=== PATIENT | female | born 1950 | race Caucasian/White ===

== ENCOUNTER → 2017-07-03 | Outpatient (CLI) | payer BC ==
[~2017-07-03] MED LIST: CHOL100027 PO; CINNAMIN PO; CLTP PO; Flax Seed Oil PO; GLCSC750600 PO; L-LYSINE PO; MULT-506 PO; ONDA4TAB7 SL
== END | disposition home or self-care (01) ==
LOC: C.PAPS 16:02
PROVIDERS: ATTEND Obstetrics & Gynecology
DX: Z01.419 Encounter for gynecological examination (general) (routine) without abnormal findings (principal)

== ENCOUNTER → 2017-10-08 | Outpatient (CLI) | payer OTHER ==
[2017-10-08 12:34] LABS: BLOOD UREA NITROGEN 12 mg/dl (7-18); CALCIUM 9.5 mg/dl (8.5-10.1); CARBON DIOXIDE 30 mmol/L (21-32); CREATININE 0.88 mg/dl (0.60-1.20); GLUCOSE 105 mg/dl (70-99); POTASSIUM 4.4 mmol/L (3.5-5.1); SODIUM 140 mmol/L (136-145)
[2017-10-08 12:37] LABS: HEMATOCRIT 43.3 % (37-47); HEMOGLOBIN 14.9 g/dL (12.0-16.0); MEAN CELL VOLUME 91.5 fL (80-100); MEAN CORPUSCULAR HEMOGLOBIN 31.5 pg (25-34); MEAN CORPUSCULAR HGB CONC 34.4 g/dl (32-36); MEAN PLATELET VOLUME 10.7 fL (7.4-10.4); PLATELET COUNT 196 K/uL (130-400); RED CELL DISTRIBUTION WIDTH CV 13.2 % (11.5-14.5); RED CELL DISTRIBUTION WIDTH SD 43.8 fL (36.4-46.3); WHITE BLOOD COUNT 5.65 K/uL (4.8-10.8)
== END | disposition home or self-care (01) ==
LOC: C.LABBFT 09:29
PROVIDERS: ATTEND Physician Assistant Medical
DX: I10 Essential (primary) hypertension (principal); R04.0 Epistaxis

== ENCOUNTER 2020-10-24 10:06 | Inpatient (IN) ==
[2020-10-24] MEDS ORDERED: SODIUM CHLORIDE 0.9% 1000ML 1,000 ML IV ONE (10:41)
--- NOTE | 2020-10-24 10:51 | Emergency Department Note ---
History of Present Illness General Chief complaint: Illness Stated complaint: EXPOSURE TO COVID 19 - FEELING ILL Time Seen by Provider: 10/24/20 10:18 Source: patient Mode of arrival: ambulatory Limitations: no limitations History of Present Illness Provider complaint: fatigue, cough, COVID exposure Onset (ago): week(s) 3 Associated symptoms: + cough, + loss of appetite, + malaise, + nausea/vomiting and + weakness; no chest pain, no fever/chills and no shortness of breath This is a 70-year-old female presents the emergency department with concern for possible Covid exposure 3 weeks ago. Patient complains of multiple symptoms stating that she first began noticing some fatigue. She then also noticed mildly productive cough, intermittent diarrhea, body aches. She denies fevers chills, or chest pain. Patient denies any sense of being short of breath. Patient denies any history of tobacco abuse or asthma. No recent change in medications. She states 3 weeks ago she was exposed to someone who at the time did not know they had Covid. They were diagnosed 4 days later which is about when she started to not feel well. Patient states she assumed she had Covid so she was quarantining at home. She states some days she feels better some days she feels worse but overall she is not getting better. She states she has had a poor appetite and is concerned about dehydration. She states she is also concerned about low potassium as given her poor intake recently she is aware that one of her blood pressure medications could also affect her potassium. Patient has no history of pneumonia. Patient did not receive a flu vaccine this year. Pt seen during a time of high acuity and national emergency pandemic while wearing PPE. Home Medications Medication Instructions Recorded Confirmed Type calcium carbonate 600 mg calcium 600 - 1,200 mg PO DAILY tab 04/16/19 10/24/20 History (1,500 mg) tablet cholecalciferol (vitamin D3) 125 5,000 units PO DAILY tab 04/16/19 10/24/20 History mcg (5,000 unit) tablet cinnamon bark 500 mg capsule 0 mg PO DAILY cap 04/16/19 10/24/20 History coenzyme Q10 100 mg capsule 100 mg PO DAILY cap 04/16/19 10/24/20 History multivitamin 1 tab PO DAILY 04/16/19 10/24/20 History red yeast rice 600 mg capsule 600 mg PO DAILY cap 04/16/19 10/24/20 History irbesartan 75 mg tablet 75 mg PO DAILY #90 tab 04/28/20 10/24/20 Rx glucos sul [id number] 2 cap PO DAILY 10/24/20 10/24/20 History [Glucosamine Chondroitin] Allergies Allergy/AdvReac Type Severity Reaction Status Date / Time ciprofloxacin Allergy Unknown Verified 10/24/20 15:17 codeine Allergy Unknown . Verified 10/24/20 15:17 morphine Allergy Unknown . Verified 10/24/20 15:17 Past Med/Surg History Medical History (Updated 10/26/20 @ 13:17 by Suzie Cai DO) History of tremor Hypercholesteremia Hypertension Surgical History History of appendectomy History of laparoscopic cholecystectomy History of tonsillectomy and adenoidectomy History of vaginal hysterectomy Family History Mother Thyroid cancer Social History Smoking Status: Never smoker Second Hand Exposure: No; Hx Alcohol Use: No Hx Substance Use: No Preferred Language: Kyrgyz Communication Ability: Effective Visual Impairment: No Limitations Hearing Ability: Normal Hospital Personnel Director Required: No Beliefs That Will Affect Care: None marital status: / Current Living Situation: Alone 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 and A total of 10 systems reviewed and were otherwise negative Physical Exam Vital Signs Vital Signs - 24 hr 10/24/20 10:10 10/24/20 10:27 10/24/20 10:30 Temperature 36.8 C 37.7 C H Temperature Source Temporal Artery Scan Oral Pulse Rate 95 H 91 H Pulse Rate [Right Finger] 90 Pulse Rate from SpO2 Sensor 92 H Respiratory Rate 22 16 19 Respiratory Effort / Characteristics Non-Labored Spontaneous Respiratory Depth Normal Respiratory Pattern Regular Blood Pressure 160/98 H 170/95 H Blood Pressure [Right Arm] 170/95 H Blood Pressure Mean 118 120 Blood Pressure Mean [Right Arm] 120 Blood Pressure Position Sitting Blood Pressure Position [Right Arm] Sitting Pulse Oximetry 90 91 90 Oxygen Delivery Method Room Air Room Air Room Air Oxygen Flow Rate Sepsis Recent Fever Within 48 Hours No Sepsis New/Unexplained Change in Mental Status N/A Sepsis Action Taken by Nursing No Action Required 10/24/20 11:30 Temperature Temperature Source Pulse Rate 88 Pulse Rate [Right Finger] Pulse Rate from SpO2 Sensor 88 Respiratory Rate 18 Respiratory Effort / Characteristics Respiratory Depth Respiratory Pattern Blood Pressure Blood Pressure [Right Arm] Blood Pressure Mean Blood Pressure Mean [Right Arm] Blood Pressure Position Blood Pressure Position [Right Arm] Pulse Oximetry 95 Oxygen Delivery Method Nasal Cannula Oxygen Flow Rate 2 Sepsis Recent Fever Within 48 Hours Sepsis New/Unexplained Change in Mental Status Sepsis Action Taken by Nursing GENERAL: alert, well appearing, well nourished, no distress, non-toxic EYE EXAM: normal conjunctiva, PERRL and EOM's grossly intact OROPHARYNX: no exudate, no erythema, lips, buccal mucosa, and tongue normal and mucous membranes are moist NECK: supple, no nuchal rigidity, no adenopathy, non-tender LUNGS: Clear to auscultation. Normal chest wall mechanics, no w/r/r HEART: no murmurs, S1 normal and S2 normal ABDOMEN: abdomen soft, non-tender, normo-active bowel sounds, no masses, no rebound or guarding. BACK: Back is symmetrical on inspection and there is no deformity, no midline tenderness, no CVA tenderness. SKIN: no rashes and no bruising UPPER EXTREMITIES: upper extremities are grossly normal. FROM, nml pulses b/l. LOWER EXTREMITIES: No pitting edema. FROM, nml pulses b/l. NEURO EXAM: Normal sensorium, cranial nerves II-XII grossly intact, normal speech, no gross weakness of arms, no gross weakness of legs. Gross sensation intact. Course Administered Medications Dexamethasone (Dexamethasone 4 Mg Tab) 6 mg PO DAILY GUEVARA Stop: 11/02/20 09:55 Last Admin: 10/26/20 07:54 Dose: 6 mg Documented by: [id number] Irbesartan (Irbesartan 75 Mg Tab) 75 mg PO DAILY@0800 GUEVARA Stop: 11/24/20 07:59 Last Admin: 10/26/20 07:53 Dose: 75 mg Documented by: [id number] Admin: 10/25/20 08:27 Dose: 75 mg Documented by: [id number] Vitamin D (Cholecalciferol 1,000 Units 25 Mcg Tab) 5,000 units PO DAILY@0800 GUEVARA Stop: 11/24/20 07:59 Last Admin: 10/26/20 07:53 Dose: 5,000 units Documented by: [id number] Admin: 10/25/20 08:27 Dose: 5,000 units Documented by: [id number] Discontinued Medications Dexamethasone (Dexamethasone Sod Inj 10 Mg/Ml Vial) 6 mg IV NOW ONE Stop: 10/24/20 13:29 Last Admin: 10/24/20 14:50 Dose: 6 mg Documented by: [id number] Sodium Chloride (Nss 1000ml) 1,000 mls @ 999 mls/hr IV .Q1H1M ONE Stop: 10/24/20 11:41 Last Infusion: 10/24/20 13:33 Dose: 0 mls/hr Documented by: [id number] Admin: 10/24/20 11:15 Dose: 999 mls/hr Documented by: [id number] Acetaminophen (Ofirmev) 1,000 mg in 100 mls @ 400 mls/hr IV NOW STA Stop: 10/24/20 11:12 Last Infusion: 10/24/20 12:34 Dose: 0 mls/hr Documented by: [id number] Admin: 10/24/20 12:13 Dose: 400 mls/hr Documented by: [id number] Ceftriaxone Sodium (Rocephin) 2,000 mg in 70 mls @ 140 mls/hr IV NOW STA Stop: 10/24/20 13:39 Last Infusion: 10/24/20 14:44 Dose: 0 mls/hr Documented by: [id number] Admin: 10/24/20 13:33 Dose: 140 mls/hr Documented by: [id number] Sodium Chloride (Nss 1000ml) 1,000 mls @ 200 mls/hr IV .Q5H GUEVARA Stop: 11/23/20 13:14 Last Admin: 10/24/20 20:02 Dose: Not Given Documented by: [id number] Infusion: 10/24/20 18:50 Dose: 0 mls/hr Documented by: [id number] Admin: 10/24/20 13:33 Dose: 200 mls/hr Documented by: [id number] Dexamethasone Sodium Phosphate (6 mg/ Syringe) 1.5 mls @ 1 mls/min IV DAILY@0800 [facility] Stop: 11/24/20 07:59 Last Admin: 10/25/20 08:28 Dose: 1 mls/min Documented by: [id number] Medical Decision Making Differential Diagnosis Differential Diagnosis includes but is not limited to dehydration, stroke, anemia, hypoglycemia, hyponatremia, hypernatremia, urinary tract infection, pneumonia, bronchitis, sepsis, gastroenteritis, additional abdominal pathology, metabolic abnormalities and infections. Medical Records Attestation: I reviewed the patient's medical records. Home Medications Current Medication List: was personally reviewed by me Laboratory Data Attestation: I reviewed the patient's lab results. Result diagrams: 10/26/20 06:32 10/26/20 06:32 Lab Results 10/24/20 10/24/20 10/24/20 Range/Units 10:36 10:36 11:17 WBC 6.10 (4.8-10.8) K/uL RBC 4.68 (4.2-5.4) M/uL Hgb 15.0 (12.0-16.0) g/dL Hct 41.8 (37-47) % MCV 89.3 (80-100) fL MCH 32.1 (25-34) pg MCHC 35.9 (32-36) g/dL RDW Std Deviation 43.0 (36.4-46.3) fL RDW Coeff of Lauren 13.2 (11.5-14.5) % Plt Count 204 (130-400) K/uL MPV 10.8 H (7.4-10.4) fL Immature Gran % (Auto) 0.3 % Neut % (Auto) 75.1 % Lymph % (Auto) 14.1 % [place] % (Auto) 10.3 % Eos % (Auto) 0.0 % Baso % (Auto) 0.2 % Neut # (Auto) 4.58 (1.4-6.5) K/uL Lymph # (Auto) 0.86 L (1.2-3.4) K/uL [place] # (Auto) 0.63 H (0.11-0.59) K/uL Eos # (Auto) 0.00 (0-0.5) K/uL Baso # (Auto) 0.01 (0-0.2) K/uL Immature Gran # (Auto) 0.02 (0.00-0.02) K/uL Sodium 137 (136-145) mmol/L Potassium (3.5-5.1) mmol/L Chloride 102 (98-107) mmol/L Carbon Dioxide 27 (21-32) mmol/L Anion Gap 8.0 (3-11) BUN 8 (7-18) mg/dl Creatinine 0.80 (0.6-1.2) mg/dl Est Cr Clr Drug Dosing 70.9 ml/min Est GFR ( Amer) 86.6 Est GFR (Non-Af Amer) 74.7 BUN/Creatinine Ratio 9.8 L (10-20) Glucose 122 H (70-99) mg/dl Calcium 8.5 (8.5-10.1) mg/dl Magnesium (1.8-2.4) mg/dl Total Bilirubin 0.8 (0.2-1) mg/dl AST (15-37) U/L ALT 45 (12-78) U/L Alkaline Phosphatase 93 (45-117) U/L Troponin I < 0.015 (0-0.045) ng/ml NT-Pro-B Natriuret Pep 185 (0-900) pg/ml Total Protein 6.8 (6.4-8.2) gm/dl Albumin 2.7 L (3.4-5.0) gm/dl Globulin 4.1 H (2.5-4.0) gm/dl Albumin/Globulin Ratio 0.7 L (0.9-2) Lipase 119 (73-393) U/L Procalcitonin (0-0.5) ng/ml TSH 0.916 (0.300-4.500) uIu/ml Urine Color Urine Appearance (Clear) Urine pH (4.5-7.5) Ur Specific [place] (1.000-1.030) Urine Protein (Negative) Urine Glucose (UA) (Negative) Urine Ketones (Negative) Urine Blood (Negative) Urine Nitrite (Negative) Urine Bilirubin (Negative) Urine Urobilinogen (Negative) Ur Leukocyte Esterase (Negative) Urine WBC (Auto) (0-5) /hpf Urine RBC (Auto) (0-4) /hpf U Hyaline Cast (Auto) (0-5) /lpf U Epithel Cells (Auto) (0-5) /lpf Urine Bacteria (Auto) (Negative) COVID-19 Eval Order CovFluRsv at [facility] SARS-CoV-2 (PCR) (Negative) Influenza Type A (PCR) (Neg) Influenza Type B (PCR) (Neg) RSV (RT-PCR) (Neg) 10/24/20 10/24/20 10/24/20 Range/Units 11:17 12:04 12:04 WBC (4.8-10.8) K/uL RBC (4.2-5.4) M/uL Hgb (12.0-16.0) g/dL Hct (37-47) % MCV (80-100) fL MCH (25-34) pg MCHC (32-36) g/dL RDW Std Deviation (36.4-46.3) fL RDW Coeff of Lauren (11.5-14.5) % Plt Count (130-400) K/uL MPV (7.4-10.4) fL Immature Gran % (Auto) % Neut % (Auto) % Lymph % (Auto) % [place] % (Auto) % Eos % (Auto) % Baso % (Auto) % Neut # (Auto) (1.4-6.5) K/uL Lymph # (Auto) (1.2-3.4) K/uL [place] # (Auto) (0.11-0.59) K/uL Eos # (Auto) (0-0.5) K/uL Baso # (Auto) (0-0.2) K/uL Immature Gran # (Auto) (0.00-0.02) K/uL Sodium (136-145) mmol/L Potassium 3.6 (3.5-5.1) mmol/L Chloride (98-107) mmol/L Carbon Dioxide (21-32) mmol/L Anion Gap (3-11) BUN (7-18) mg/dl Creatinine (0.6-1.2) mg/dl Est Cr Clr Drug Dosing ml/min Est GFR ( Amer) Est GFR (Non-Af Amer) BUN/Creatinine Ratio (10-20) Glucose (70-99) mg/dl Calcium (8.5-10.1) mg/dl Magnesium 2.1 (1.8-2.4) mg/dl Total Bilirubin (0.2-1) mg/dl AST 34 (15-37) U/L ALT (12-78) U/L Alkaline Phosphatase (45-117) U/L Troponin I (0-0.045) ng/ml NT-Pro-B Natriuret Pep (0-900) pg/ml Total Protein (6.4-8.2) gm/dl Albumin (3.4-5.0) gm/dl Globulin (2.5-4.0) gm/dl Albumin/Globulin Ratio (0.9-2) Lipase (73-393) U/L Procalcitonin < 0.05 (0-0.5) ng/ml TSH (0.300-4.500) uIu/ml Urine Color Urine Appearance (Clear) Urine pH (4.5-7.5) Ur Specific [place] (1.000-1.030) Urine Protein (Negative) Urine Glucose (UA) (Negative) Urine Ketones (Negative) Urine Blood (Negative) Urine Nitrite (Negative) Urine Bilirubin (Negative) Urine Urobilinogen (Negative) Ur Leukocyte Esterase (Negative) Urine WBC (Auto) (0-5) /hpf Urine RBC (Auto) (0-4) /hpf U Hyaline Cast (Auto) (0-5) /lpf U Epithel Cells (Auto) (0-5) /lpf Urine Bacteria (Auto) (Negative) COVID-19 Eval Order SARS-CoV-2 (PCR) POSITIVE A* (Negative) Influenza Type A (PCR) Negative (Neg) Influenza Type B (PCR) Negative (Neg) RSV (RT-PCR) Negative (Neg) 10/24/20 Range/Units 12:20 WBC (4.8-10.8) K/uL RBC (4.2-5.4) M/uL Hgb (12.0-16.0) g/dL Hct (37-47) % MCV (80-100) fL MCH (25-34) pg MCHC (32-36) g/dL RDW Std Deviation (36.4-46.3) fL RDW Coeff of Lauren (11.5-14.5) % Plt Count (130-400) K/uL MPV (7.4-10.4) fL Immature Gran % (Auto) % Neut % (Auto) % Lymph % (Auto) % [place] % (Auto) % Eos % (Auto) % Baso % (Auto) % Neut # (Auto) (1.4-6.5) K/uL Lymph # (Auto) (1.2-3.4) K/uL [place] # (Auto) (0.11-0.59) K/uL Eos # (Auto) (0-0.5) K/uL Baso # (Auto) (0-0.2) K/uL Immature Gran # (Auto) (0.00-0.02) K/uL Sodium (136-145) mmol/L Potassium (3.5-5.1) mmol/L Chloride (98-107) mmol/L Carbon Dioxide (21-32) mmol/L Anion Gap (3-11) BUN (7-18) mg/dl Creatinine (0.6-1.2) mg/dl Est Cr Clr Drug Dosing ml/min Est GFR ( Amer) Est GFR (Non-Af Amer) BUN/Creatinine Ratio (10-20) Glucose (70-99) mg/dl Calcium (8.5-10.1) mg/dl Magnesium (1.8-2.4) mg/dl Total Bilirubin (0.2-1) mg/dl AST (15-37) U/L ALT (12-78) U/L Alkaline Phosphatase (45-117) U/L Troponin I (0-0.045) ng/ml NT-Pro-B Natriuret Pep (0-900) pg/ml Total Protein (6.4-8.2) gm/dl Albumin (3.4-5.0) gm/dl Globulin (2.5-4.0) gm/dl Albumin/Globulin Ratio (0.9-2) Lipase (73-393) U/L Procalcitonin (0-0.5) ng/ml TSH (0.300-4.500) uIu/ml Urine Color Yellow Urine Appearance Cloudy A (Clear) Urine pH 7.5 (4.5-7.5) Ur Specific [place] 1.014 (1.000-1.030) Urine Protein 1+ H (Negative) Urine Glucose (UA) Negative (Negative) Urine Ketones Negative (Negative) Urine Blood Trace H (Negative) Urine Nitrite Positive A (Negative) Urine Bilirubin Negative (Negative) Urine Urobilinogen Negative (Negative) Ur Leukocyte Esterase Negative (Negative) Urine WBC (Auto) 5-10 H (0-5) /hpf Urine RBC (Auto) 0-4 (0-4) /hpf U Hyaline Cast (Auto) 1-5 (0-5) /lpf U Epithel Cells (Auto) >30 H (0-5) /lpf Urine Bacteria (Auto) 4+ H (Negative) COVID-19 Eval Order SARS-CoV-2 (PCR) (Negative) Influenza Type A (PCR) (Neg) Influenza Type B (PCR) (Neg) RSV (RT-PCR) (Neg) Imaging Data Radiologist's Impression: SINGLE VIEW CHEST CLINICAL HISTORY: Cough. FINDINGS: An AP, portable, upright chest radiograph is obtained. No prior studies are available for comparison at the time of dictation. The heart appears mildly enlarged. Multifocal patchy airspace consolidation is seen throughout both lungs. No large pleural effusion or pneumothorax is seen. The skeletal structures are osteopenic. The bony thorax is grossly intact. IMPRESSION: Multifocal airspace consolidation is seen throughout both lungs, typical for multifocal pneumonia. Clinical correlation will be required and radiographic follow-up to resolution is recommended. ACT 112: Negative or not required by law. Electronically signed by: Marito Davey M.D. 10/24/2020 11:40 AM ECG Data Attestation: I personally reviewed and interpreted this ECG as follows: Indication: + weakness Rate (beats per minute): 86 Rhythm: + normal sinus ECG Intervals/blocks: + Normal QRS and + Normal QT ECG [place]: + Normal ECG ST segments: + Normal ST segments Blood Pressure Blood Pressure Findings: Elevated blood pressure Blood Pressure Disposition: further management by hospitalist [facility] Narrative This is a 70 yo female who presents due to concern for dehydration and possible recent exposure to COVID. Patient denies overt fevers or SOB. ADmitted to a cough and several other symptoms. VS stable. Patient was 90% on RA at rest. Labs sent and CXR performed. CXR with multifocal pneumonia. COVID was still pending at the time so no antibiotics started. UA resulted and suggestive of UTI despite suboptimal specimen. Pt given IV antibiotics. Patient hypoxia with any movement/exertion. Trying to go to the bathroom dropped into 80's. No pr ior pulmonary history. Discussed with patient all results, COVID did result positive which likely explaines pna and other symptoms. I discussed disposition. She verbalized understanding and was in agreement with the plan. An order was placed for continuous cardiac monitoring. The monitor shows a rate of _68_ with normal sinus_ rhythm. Impression & Plan Weakness, COVID-19, Hypoxia, Dehydration, Acute UTI (urinary tract infection) Discharge Plan Visit Data Chief Complaint: Illness Stated Complaint: EXPOSURE TO COVID 19 - FEELING ILL ED Provider: Suzie Cai Discharge Problem: Weakness, COVID-19, Hypoxia, Dehydration, Acute UTI (urinary tract infection) Patient Disposition: Admitted As Inpatient Discharge Instructions Interventions: ED Discharge Assessment Last Done: 10/24/20 18:45
[2020-10-24] MEDS ORDERED: ACETAMINOPHEN 1,000 MG/100 ML VIAL IV STA (10:58)
[2020-10-24 11:12] LABS: Basophils # (auto) 0.01 K/uL (0-0.2); Basophils % (auto) 0.2 %; Hematocrit (blood only) 41.8 % (37-47); Immature Granulocytes # (auto) 0.02 K/uL (0.00-0.02); Immature Granulocytes % (auto) 0.3 %; Lymphocytes # (auto) 0.86 K/uL (1.2-3.4); Lymphocytes % (auto) 14.1 %; Mean Corpuscular Hemoglobin 32.1 pg (25-34); Mean Corpuscular Hgb Conc 35.9 g/dL (32-36); Mean Corpuscular Volume 89.3 fL (80-100); Mean Platelet Volume 10.8 fL (7.4-10.4); Monocytes # (auto) 0.63 K/uL (0.11-0.59); Monocytes % (auto) 10.3 %; Neutrophils # (auto) 4.58 K/uL (1.4-6.5); Neutrophils % (auto) 75.1 %; Platelet Count 204 K/uL (130-400); RDW Coefficient of Variation 13.2 % (11.5-14.5); Red Blood Count 4.68 M/uL (4.2-5.4)
[2020-10-24 11:40] LABS: Alanine Aminotransferase 45 U/L (12-78); Albumin Level 2.7 gm/dl (3.4-5.0); BUN Creatinine Ratio 9.8 (10-20); Blood Urea Nitrogen 8 mg/dl (7-18); Calcium 8.5 mg/dl (8.5-10.1); Carbon Dioxide 27 mmol/L (21-32); Chloride 102 mmol/L (98-107); Creatinine Clr Calc Pharmacy 70.9 ml/min; Est GFR (African American) 86.6; Est GFR (Non-African American) 74.7; Glucose 122 mg/dl (70-99); Lipase 119 U/L (73-393); Sodium 137 mmol/L (136-145)
--- NOTE | 2020-10-24 11:41 | XRay Report ---
SINGLE VIEW CHEST CLINICAL HISTORY: Cough. FINDINGS: An AP, portable, upright chest radiograph is obtained. No prior studies are available for c omparison at the time of dictation. The heart appears mildly enlarged. Multifocal patchy airspace co nsolidation is seen throughout both lungs. No large pleural effusion or pneumothorax is seen. The ske letal structures are osteopenic. The bony thorax is grossly intact. IMPRESSION: Multifocal airspace consolidation is seen throughout both lungs, typical for multifocal p neumonia. Clinical correlation will be required and radiographic follow-up to resolution is recommend ed. ACT 112: Negative or not required by law. Electronically signed by: Marito Davey M.D. 10/24/2020 11:40 AM
[2020-10-24 11:49] LABS: Albumin Globulin Ratio 0.7 (0.9-2); Alkaline Phosphatase 93 U/L (45-117); Bilirubin,Total 0.8 mg/dl (0.2-1); Globulin 4.1 gm/dl (2.5-4.0); NT Pro B Type Natriuretic Pept 185 pg/ml (0-900); Thyroid Stimulating Hormone 0.916 uIu/ml (0.300-4.500); Total Protein 6.8 gm/dl (6.4-8.2); Troponin I < 0.015 ng/ml (0-0.045)
[2020-10-24 12:23] LABS: Potassium 3.6 mmol/L (3.5-5.1)
[2020-10-24 12:28] LABS: Magnesium 2.1 mg/dl (1.8-2.4)
[2020-10-24 12:38] LABS: Appearance Urine Cloudy (Clear); Bacteria Urine Automated 4+ (Negative); Bilirubin Urine Negative (Negative); Blood Urine Trace (Negative); Color Urine Yellow; Epithelial Cell Urine Auto >30 /lpf (0-5); Glucose Urine UA Negative (Negative); Ketones Urine Negative (Negative); Leukocyte Esterase Urine Negative (Negative); Nitrite Urine Positive (Negative); RBC Urine Automated 0-4 /hpf (0-4); Specific Gravity Urine 1.014 (1.000-1.030); Urobilinogen Urine Negative (Negative); pH Urine 7.5 (4.5-7.5)
[2020-10-24 12:40] LABS: Protein Urine 1+ (Negative)
--- NOTE | 2020-10-24 12:47 | Electrocardiogram Report ---
Test Reason : Blood Pressure : / mmHG Vent. Rate : 086 BPM Atrial Rate : 086 BPM P-R Int : 156 ms QRS Dur : 090 ms QT Int : 332 ms P-R-T Axes : 046 031 028 degrees QTc Int : 397 ms Normal sinus rhythm Normal ECG When compared with ECG of 24-JUN-2018 14:51, Nonspecific T wave abnormality now evident in Anterior leads Confirmed by Mike Birmingham [id number]) on 10/24/2020 12:46:51 PM Referred By: REFERRED SELF Confirmed By:Mike Birmingham
[2020-10-24 13:04] LABS: Influenza A virus by PCR Negative (Neg); Influenza B virus by PCR Negative (Neg); RSV by PCR Negative (Neg)
[2020-10-24] MEDS ORDERED: cefTRIAXone SODIUM 2,000 MG/70 ML BAG IV STA (13:10)
[2020-10-24 13:13] LABS: SARS CoV2 RNA(COVID-19) InHosp POSITIVE (Negative)
[2020-10-24] MEDS ORDERED: DEXAMETHASONE SOD INJ 10 MG/ML VIAL IV ONE (13:28)
[2020-10-24] MEDS: SODIUM CHLORIDE 0.9% 1000ML 1,000 ML IV SCH ×2 (13:33→20:02)
--- NOTE | 2020-10-24 14:15 | History & Physical Report ---
Date of Service October 24, 2020 Assessment & Plan (1) Pneumonia due to COVID-19 virus: With bilateral multifocal pneumonia in the setting of Covid-19 illness She is around day 16 of her illness and is outside the window for remdesivir convalescent plasma She has some hypoxia with pulse ox 80% with ambulation but 90% at rest on room air. -Admit to medical floor with telemetry, Covid precautions -Start dexamethasone 6 mg IV once daily x10-day course -Received 1 L of fluids in the ER, no further fluids needed at this time as she is able to tolerate p.o. -Antipyretics and antiemetics as needed -Discussed prone positioning as tolerated -Continue supplemental O2 as below to keep pulse ox greater than 90% -Blood cultures pending (2) Acute respiratory failure with hypoxia: Secondary to Covid-19 pneumonia Pulse ox 80% on room air with ambulation but 90% at rest -Supplemental O2 as needed to keep pulse ox greater than 90% -Prone positioning, dexamethasone -Albuterol as needed (3) Hypertension: Blood pressures elevated here in the ER, could be secondary to anxiety -Follow blood pressures IV hydralazine as needed SBP greater than 180 Continue home irbesartan (4) Hypercholesteremia: Hold home co-Q10 and red yeast rice (5) Abnormal finding on urinalysis: UA abnormal but seems contaminated with greater than 30 epithelials and only 5-10 WBCs She has absolutely no urinary symptoms at all Received 1 dose of ceftriaxone in the ER-we will not continue antibiotics Urine cultures are drawn (6) DVT prophylaxis: Patient reports that she cannot take any blood thinners due to extremely easy bruising and a remote history of some sort of abnormal coagulopathy work-up 40 years ago She is unwilling to try heparin or Lovenox SQ despite counseling on high risk with Covid-19 illness SCDs only, ambulation Disposition-admit to medical floor with telemetry History of Present Illness Chief Complaint: Fatigue, cough Primary Care Provider: Jake Villarreal MD This patient is a 70-year-old female with a history of HTN, hyperlipidemia, who presents to the ER with concern for possible Covid exposure from 3 weeks ago. She began noticing some fatigue and then a mildly productive cough, intermittent diarrhea, and body aches. She denies fevers or chills, denies chest pain or shortness of breath. She was exposed to a friend 3 weeks ago who was feeling ill and later tested positive for Covid. Since that time, she has been quarantining at home but came in today as she is feeling overall worse. She also has low appetite, has not been eating or drinking much at all, and feels dehydrated, with a low-grade headache which is now improved with Tylenol. In the ER, she tested positive for Covid, had lymphopenia with a normal WBC count, but otherwise normal chemistry, negative troponin, negative procalcitonin. She had a pulse ox of 90% on room air at rest but dropped to 80% on room air with minimal ambulation to the bathroom and back as per nursing-she was placed on 2 L nasal cannula. She was hypertensive and tachypneic only after ambulation to the bathroom. A chest x-ray showed multifocal pneumonia. UA showed 1+ protein, trace blood but no RBCs, positive nitrate with 5-10 WBCs, greater than 30 epis, and 4+ bacteria. Urine culture was sent as well as blood cultures. She was given a dose of IV ceftriaxone for suspected UTI, dexamethasone 6 mg IV x1, and 1 L of normal saline as well as IV Tylenol for low-grade temperature. She will be admitted for Covid-19 pneumonia and acute respiratory failure with hypoxia. Allergies Allergy/AdvReac Type Severity Reaction Status Date / Time ciprofloxacin Allergy Unknown Verified 10/24/20 15:17 codeine Allergy Unknown . Verified 10/24/20 15:17 morphine Allergy Unknown . Verified 10/24/20 15:17 Home Medications Medication Instructions Recorded Confirmed Type calcium carbonate 600 mg calcium 600 - 1,200 mg PO DAILY tab 04/16/19 10/24/20 History (1,500 mg) tablet cholecalciferol (vitamin D3) 125 5,000 units PO DAILY tab 04/16/19 10/24/20 History mcg (5,000 unit) tablet cinnamon bark 500 mg capsule 0 mg PO DAILY cap 04/16/19 10/24/20 History coenzyme Q10 100 mg capsule 100 mg PO DAILY cap 04/16/19 10/24/20 History multivitamin 1 tab PO DAILY 04/16/19 10/24/20 History red yeast rice 600 mg capsule 600 mg PO DAILY cap 04/16/19 10/24/20 History irbesartan 75 mg tablet 75 mg PO DAILY #90 tab 04/28/20 10/24/20 Rx glucos sul [id number] 2 cap PO DAILY 10/24/20 10/24/20 History [Glucosamine Chondroitin] Past Med/Surg History Medical History (Updated 10/24/20 @ 14:26 by Yumiko Nieto MD) History of tremor Hypercholesteremia Hypertension Surgical History History of appendectomy History of laparoscopic cholecystectomy History of tonsillectomy and adenoidectomy History of vaginal hysterectomy Family History Mother Thyroid cancer Social History Smoking Status: Never smoker Second Hand Exposure: No; Hx Alcohol Use: No Hx Substance Use: No Preferred Language: Tunisian Visual Impairment: No Limitations Hearing Ability: Normal marital status: / Current Living Situation: Alone current occupational status: 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 Denies any urinary symptoms at all, no burning or frequency or urgency. Denies any blood in the stool No vomiting but has been nauseated Denies chest pain, no shortness of breath Positive fatigue especially with minimal exertion Physical Exam Constitutional: WD/WN, vitals as above Eyes: PERRL, conjunctivae normal, anicteric sclerae ENMT: external ear and nose normal, oropharynx normal (Mildly dry mucous membranes) Neck: trachea midline, no thyromegaly Respiratory: normal respiratory effort; no respiratory distress Auscultation: + crackles (And bilateral middle and lower lung vu); no rhonchi and no wheezes Cardiovascular: RRR, no murmur, no edema Extremities: no calf tenderness Chest (Breasts): Chest: normal inspection of chest Gastrointestinal (Abdomen): normal bowel sounds, soft, nontender, no hepatosplenomegaly Musculoskeletal: Extremities: extremities normal to inspection; no cyanosis and no clubbing Skin: no rashes, warm and dry Neurologic: moves all extremities and awake; no focal motor deficits Psychiatric: A+Ox3, euthymic affect Lymphatic: no lymphedema Results & Data Results & Data ([facility]) Vital Signs (Past 12 Hours) Vital Signs Temp Pulse Pulse Pulse Resp Resp BP 10/24/20 14:01 83 25 H 10/24/20 12:13 80 20 179/90 H 10/24/20 11:30 88 18 10/24/20 10:30 91 H 19 170/95 H 10/24/20 10:27 37.7 C H 90 16 10/24/20 10:10 36.8 C 95 H 22 160/98 H BP Pulse Ox Pulse Ox 10/24/20 14:01 80 L 10/24/20 12:13 93 10/24/20 11:30 95 10/24/20 10:30 90 10/24/20 10:27 170/95 H 91 10/24/20 10:10 90 Laboratory Results 10/24/20 10/24/20 10/24/20 Range/Units 12:20 12:04 12:04 WBC (4.8-10.8) K/uL RBC (4.2-5.4) M/uL Hgb (12.0-16.0) g/dL Hct (37-47) % MCV (80-100) fL MCH (25-34) pg MCHC (32-36) g/dL RDW Std Deviation (36.4-46.3) fL RDW Coeff of Lauren (11.5-14.5) % Plt Count (130-400) K/uL MPV (7.4-10.4) fL Immature Gran % (Auto) % Neut % (Auto) % Lymph % (Auto) % Murray % (Auto) % Eos % (Auto) % Baso % (Auto) % Neut # (Auto) (1.4-6.5) K/uL Lymph # (Auto) (1.2-3.4) K/uL Murray # (Auto) (0.11-0.59) K/uL Eos # (Auto) (0-0.5) K/uL Baso # (Auto) (0-0.2) K/uL Immature Gran # (Auto) (0.00-0.02) K/uL Sodium (136-145) mmol/L Potassium 3.6 (3.5-5.1) mmol/L Chloride (98-107) mmol/L Carbon Dioxide (21-32) mmol/L Anion Gap (3-11) BUN (7-18) mg/dl Creatinine (0.6-1.2) mg/dl Est Cr Clr Drug Dosing ml/min Est GFR ( Amer) Est GFR (Non-Af Amer) BUN/Creatinine Ratio (10-20) Glucose (70-99) mg/dl Calcium (8.5-10.1) mg/dl Magnesium 2.1 (1.8-2.4) mg/dl Total Bilirubin (0.2-1) mg/dl AST 34 (15-37) U/L ALT (12-78) U/L Alkaline Phosphatase (45-117) U/L Troponin I (0-0.045) ng/ml NT-Pro-B Natriuret Pep (0-900) pg/ml Total Protein (6.4-8.2) gm/dl Albumin (3.4-5.0) gm/dl Globulin (2.5-4.0) gm/dl Albumin/Globulin Ratio (0.9-2) Lipase (73-393) U/L Procalcitonin < 0.05 (0-0.5) ng/ml TSH (0.300-4.500) uIu/ml Urine Color Yellow Urine Appearance Cloudy A (Clear) Urine pH 7.5 (4.5-7.5) Ur Specific [place] 1.014 (1.000-1.030) Urine Protein 1+ H (Negative) Urine Glucose (UA) Negative (Negative) Urine Ketones Negative (Negative) Urine Blood Trace H (Negative) Urine Nitrite Positive A (Negative) Urine Bilirubin Negative (Negative) Urine Urobilinogen Negative (Negative) Ur Leukocyte Esterase Negative (Negative) Urine WBC (Auto) 5-10 H (0-5) /hpf Urine RBC (Auto) 0-4 (0-4) /hpf U Hyaline Cast (Auto) 1-5 (0-5) /lpf U Epithel Cells (Auto) >30 H (0-5) /lpf Urine Bacteria (Auto) 4+ H (Negative) COVID-19 Eval Order SARS-CoV-2 (PCR) (Negative) Influenza Type A (PCR) (Neg) Influenza Type B (PCR) (Neg) RSV (RT-PCR) (Neg) 10/24/20 10/24/20 10/24/20 Range/Units 11:17 11:17 10:36 WBC (4.8-10.8) K/uL RBC (4.2-5.4) M/uL Hgb (12.0-16.0) g/dL Hct (37-47) % MCV (80-100) fL MCH (25-34) pg MCHC (32-36) g/dL RDW Std Deviation (36.4-46.3) fL RDW Coeff of Lauren (11.5-14.5) % Plt Count (130-400) K/uL MPV (7.4-10.4) fL Immature Gran % (Auto) % Neut % (Auto) % Lymph % (Auto) % Murray % (Auto) % Eos % (Auto) % Baso % (Auto) % Neut # (Auto) (1.4-6.5) K/uL Lymph # (Auto) (1.2-3.4) K/uL Murray # (Auto) (0.11-0.59) K/uL Eos # (Auto) (0-0.5) K/uL Baso # (Auto) (0-0.2) K/uL Immature Gran # (Auto) (0.00-0.02) K/uL Sodium 137 (136-145) mmol/L Potassium (3.5-5.1) mmol/L Chloride 102 (98-107) mmol/L Carbon Dioxide 27 (21-32) mmol/L Anion Gap 8.0 (3-11) BUN 8 (7-18) mg/dl Creatinine 0.80 (0.6-1.2) mg/dl Est Cr Clr Drug Dosing 70.9 ml/min Est GFR ( Amer) 86.6 Est GFR (Non-Af Amer) 74.7 BUN/Creatinine Ratio 9.8 L (10-20) Glucose 122 H (70-99) mg/dl Calcium 8.5 (8.5-10.1) mg/dl Magnesium (1.8-2.4) mg/dl Total Bilirubin 0.8 (0.2-1) mg/dl AST (15-37) U/L ALT 45 (12-78) U/L Alkaline Phosphatase 93 (45-117) U/L Troponin I < 0.015 (0-0.045) ng/ml NT-Pro-B Natriuret Pep 185 (0-900) pg/ml Total Protein 6.8 (6.4-8.2) gm/dl Albumin 2.7 L (3.4-5.0) gm/dl Globulin 4.1 H (2.5-4.0) gm/dl Albumin/Globulin Ratio 0.7 L (0.9-2) Lipase 119 (73-393) U/L Procalcitonin (0-0.5) ng/ml TSH 0.916 (0.300-4.500) uIu/ml Urine Color Urine Appearance (Clear) Urine pH (4.5-7.5) Ur Specific [place] (1.000-1.030) Urine Protein (Negative) Urine Glucose (UA) (Negative) Urine Ketones (Negative) Urine Blood (Negative) Urine Nitrite (Negative) Urine Bilirubin (Negative) Urine Urobilinogen (Negative) Ur Leukocyte Esterase (Negative) Urine WBC (Auto) (0-5) /hpf Urine RBC (Auto) (0-4) /hpf U Hyaline Cast (Auto) (0-5) /lpf U Epithel Cells (Auto) (0-5) /lpf Urine Bacteria (Auto) (Negative) COVID-[address]FluRsv at [facility] SARS-CoV-2 (PCR) POSITIVE A* (Negative) Influenza Type A (PCR) Negative (Neg) Influenza Type B (PCR) Negative (Neg) RSV (RT-PCR) Negative (Neg) 10/24/20 Range/Units 10:36 WBC 6.10 (4.8-10.8) K/uL RBC 4.68 (4.2-5.4) M/uL Hgb 15.0 (12.0-16.0) g/dL Hct 41.8 (37-47) % MCV 89.3 (80-100) fL MCH 32.1 (25-34) pg MCHC 35.9 (32-36) g/dL RDW Std Deviation 43.0 (36.4-46.3) fL RDW Coeff of Lauren 13.2 (11.5-14.5) % Plt Count 204 (130-400) K/uL MPV 10.8 H (7.4-10.4) fL Immature Gran % (Auto) 0.3 % Neut % (Auto) 75.1 % Lymph % (Auto) 14.1 % Murray % (Auto) 10.3 % Eos % (Auto) 0.0 % Baso % (Auto) 0.2 % Neut # (Auto) 4.58 (1.4-6.5) K/uL Lymph # (Auto) 0.86 L (1.2-3.4) K/uL Murray # (Auto) 0.63 H (0.11-0.59) K/uL Eos # (Auto) 0.00 (0-0.5) K/uL Baso # (Auto) 0.01 (0-0.2) K/uL Immature Gran # (Auto) 0.02 (0.00-0.02) K/uL Sodium (136-145) mmol/L Potassium (3.5-5.1) mmol/L Chloride (98-107) mmol/L Carbon Dioxide (21-32) mmol/L Anion Gap (3-11) BUN (7-18) mg/dl Creatinine (0.6-1.2) mg/dl Est Cr Clr Drug Dosing ml/min Est GFR ( Amer) Est GFR (Non-Af Amer) BUN/Creatinine Ratio (10-20) Glucose (70-99) mg/dl Calcium (8.5-10.1) mg/dl Magnesium (1.8-2.4) mg/dl Total Bilirubin (0.2-1) mg/dl AST (15-37) U/L ALT (12-78) U/L Alkaline Phosphatase (45-117) U/L Troponin I (0-0.045) ng/ml NT-Pro-B Natriuret Pep (0-900) pg/ml Total Protein (6.4-8.2) gm/dl Albumin (3.4-5.0) gm/dl Globulin (2.5-4.0) gm/dl Albumin/Globulin Ratio (0.9-2) Lipase (73-393) U/L Procalcitonin (0-0.5) ng/ml TSH (0.300-4.500) uIu/ml Urine Color Urine Appearance (Clear) Urine pH (4.5-7.5) Ur Specific [place] (1.000-1.030) Urine Protein (Negative) Urine Glucose (UA) (Negative) Urine Ketones (Negative) Urine Blood (Negative) Urine Nitrite (Negative) Urine Bilirubin (Negative) Urine Urobilinogen (Negative) Ur Leukocyte Esterase (Negative) Urine WBC (Auto) (0-5) /hpf Urine RBC (Auto) (0-4) /hpf U Hyaline Cast (Auto) (0-5) /lpf U Epithel Cells (Auto) (0-5) /lpf Urine Bacteria (Auto) (Negative) COVID-19 Eval Order SARS-CoV-2 (PCR) (Negative) Influenza Type A (PCR) (Neg) Influenza Type B (PCR) (Neg) RSV (RT-PCR) (Neg) Diagnostic Findings Chest x-ray image personally reviewed by me and agree with the following protocol SINGLE VIEW CHEST CLINICAL HISTORY: Cough. FINDINGS: An AP, portable, upright chest radiograph is obtained. No prior studies are available for comparison at the time of dictation. The heart appears mildly enlarged. Multifocal patchy airspace consolidation is seen throughout both lungs. No large pleural effusion or pneumothorax is seen. The skeletal structures are osteopenic. The bony thorax is grossly intact. IMPRESSION: Multifocal airspace consolidation is seen throughout both lungs, typical for multifocal pneumonia. Clinical correlation will be required and radiographic follow-up to resolution is recommended. ECG Additional Comments: ECG on 10/24/2020 at 1108 with normal sinus rhythm, rate 86, mild T wave flattening in lead V2, otherwise normal PG Care Time/CCT Total # of Minutes Spent Total Time Spent with Patient: Total time spent is greater than 50% in coordination of care (as documented) at patient's floor/unit and/or counseling patient: Coding Level of Care Code 24352 Initial Inpt Care Lvl 3 Diagnoses Pneumonia due to COVID-19 virus U07.1; J12.82 Acute respiratory failure with hypoxia J96.01 Hypertension I10 Hypercholesteremia E78.00 Abnormal finding on urinalysis R82.90 DVT prophylaxis Z29.9
[2020-10-24] MEDS ORDERED: hydrALAZINE HCL 20 MG/ML VIAL IV PRN (15:54)
[2020-10-24] MEDS ORDERED: ALBUTEROL HFA 8 GM INHALER INH PRN (18:51)
[2020-10-24] MEDS ORDERED: ACETAMINOPHEN 325 MG TAB PO PRN (18:51)
[2020-10-24] MEDS ORDERED: ONDANSETRON INJ 2 MG/ML 2 ML VIAL IV PRN (18:51)
[2020-10-25] MEDS ORDERED: dexAMETHasone 6 MG in SYRINGE 0 ML IV SCH (08:00)
[2020-10-25] MEDS: IRBESARTAN 75 MG TAB PO SCH (08:27)
[2020-10-25] MEDS: CHOLECALCIFEROL 1,000 UNITS 25 MCG TAB PO SCH (08:27)
[2020-10-25] MEDS ORDERED: DEXAMETHASONE SOD INJ 10 MG/ML VIAL IV SCH (09:00)
--- NOTE | 2020-10-25 12:46 | Hospitalist Progress Note ---
Date of Service October 25, 2020 Assessment & Plan (1) Pneumonia due to COVID-19 virus: With bilateral multifocal pneumonia in the setting of Covid-19 illness. Exposed on 10/03/2020; first symptoms on 10/10/2020. Outside the window for remdesivir or convalescent plasma. - Continue dexamethasone 6 mg PO daily x 10-day course (End date: 11/02/2020) - Discussed prone positioning as tolerated - Continue supplemental O2 as below to keep pulse ox greater than 90% - Blood cultures pending - Cough suppressant PRN (2) Acute respiratory failure with hypoxia: Secondary to Covid-19 pneumonia. - As above (3) Hypertension: Blood pressures elevated in the ED. Today, BP is 110/60. - Continue home irbesartan (4) Hypercholesteremia: - Hold home Co-Q10 and red yeast rice (5) Abnormal finding on urinalysis: UA abnormal but seems contaminated with greater than 30 epithelials and only 5-10 WBCs. She has absolutely no urinary symptoms at all. - Will not continue abx (6) DVT prophylaxis: SCDs only due to patient wishes, ambulation. Admission and Anticipated Discharge Date Admission Date: October 24, 2020 Subjective Still with a cough today, though feeling some better. Shortness of breath also improved. Reports no fevers/chills, chest pain, abdominal pain, nausea, or vomiting. Physical Exam Constitutional: WD/WN, vitals as above Eyes: EOM intact bilaterally; no conjunctival abnormality ENMT: external ear and nose normal, oropharynx normal Neck: trachea midline, no thyromegaly normal visual inspection Respiratory: normal respiratory effort, lungs clear to auscultation no respiratory distress Cardiovascular: RRR, no murmur, no edema Gastrointestinal (Abdomen): Inspection/Auscultation: abdomen normal to inspection; abdomen not distended Musculoskeletal: no cyanosis or clubbing, extremities motor strength 5/5 Skin: no rashes, warm and dry Neurologic: moves all extremities and awake Psychiatric: Orientation: alert, oriented to person and cooperative Results & Data Results & Data ([facility]) Vital Signs (Past 12 Hours) Vital Signs Temp Pulse Pulse Resp BP BP Pulse Ox 10/25/20 11:44 36.8 C 59 L 20 111/63 91 10/25/20 08:30 133/84 10/25/20 07:39 36.8 C 67 22 97/58 L 90 10/25/20 07:16 55 L 10/25/20 03:11 37.2 C 71 18 117/72 90 10/25/20 01:13 58 L PG Care Time/CCT Total # of Minutes Spent Total Time Spent with Patient: Total time spent is greater than 50% in coordination of care (as documented) at patient's floor/unit and/or counseling patient: Coding Level of Care Code 98201 Subseq Hosp Care Lvl 2 Diagnoses Pneumonia due to COVID-19 virus U07.1; J12.82 Acute respiratory failure with hypoxia J96.01 Hypertension I10 Hypercholesteremia E78.00 Abnormal finding on urinalysis R82.90 DVT prophylaxis Z29.9
[2020-10-26 06:48] LABS: Hematocrit (blood only) 38.2 % (37-47); Hemoglobin 13.4 g/dL (12.0-16.0); Mean Corpuscular Hemoglobin 31.7 pg (25-34); Mean Corpuscular Hgb Conc 35.1 g/dL (32-36); Mean Corpuscular Volume 90.3 fL (80-100); Mean Platelet Volume 10.9 fL (7.4-10.4); Platelet Count 271 K/uL (130-400); RDW Standard Deviation 43.1 fL (36.4-46.3); Red Blood Count 4.23 M/uL (4.2-5.4); White Blood Count 6.93 K/uL (4.8-10.8)
[2020-10-26 07:22] LABS: BUN Creatinine Ratio 24.5 (10-20); Calcium 9.6 mg/dl (8.5-10.1); Creatinine Clr Calc Pharmacy 68.3 ml/min; Est GFR (African American) 81.6; Est GFR (Non-African American) 70.4; Magnesium 2.2 mg/dl (1.8-2.4); Potassium 4.4 mmol/L (3.5-5.1)
[2020-10-26] MEDS: IRBESARTAN 75 MG TAB PO SCH (07:53)
[2020-10-26] MEDS: CHOLECALCIFEROL 1,000 UNITS 25 MCG TAB PO SCH (07:53)
[2020-10-26] MEDS: dexAMETHasone 4 MG TAB PO SCH (07:54)
--- NOTE | 2020-10-26 17:08 | Hospitalist Progress Note ---
Date of Service October 26, 2020 Assessment & Plan (1) Pneumonia due to COVID-19 virus: With bilateral multifocal pneumonia in the setting of Covid-19 illness. Exposed on 10/03/2020; first symptoms on 10/10/2020. Outside the window for remdesivir or convalescent plasma. - Continue dexamethasone 6 mg PO daily x 10-day course (End date: 11/02/2020) - Discussed prone positioning as tolerated - Continue supplemental O2 as below to keep pulse ox greater than 90% - Blood cultures pending - Cough suppressant PRN -> Doing some better today. Blood cultures still negative. (2) Acute respiratory failure with hypoxia: Secondary to Covid-19 pneumonia. - As above (3) Hypertension: Blood pressures elevated in the ED. Today, BP is 130/80. - Continue home irbesartan (4) Hypercholesteremia: - Hold home Co-Q10 and red yeast rice (5) Abnormal finding on urinalysis: UA abnormal but seems contaminated with greater than 30 epithelials and only 5-10 WBCs. She has absolutely no urinary symptoms at all. Asymptomatic bacteruria. - Will not continue abx (6) DVT prophylaxis: SCDs only due to patient wishes, ambulation. Admission and Anticipated Discharge Date Admission Date: October 24, 2020 Subjective Stable today. shortness of breath is about the same. Maybe less present with exertion. No major concerns presently. Reports no fevers/chills, chest pain, abdominal pain, nausea, or vomiting. Physical Exam Constitutional: WD/WN, vitals as above Eyes: EOM intact bilaterally; no conjunctival abnormality ENMT: external ear and nose normal, oropharynx normal Neck: trachea midline, no thyromegaly normal visual inspection Respiratory: normal respiratory effort, lungs clear to auscultation no respiratory distress Cardiovascular: RRR, no murmur, no edema Gastrointestinal (Abdomen): Inspection/Auscultation: abdomen normal to inspection; abdomen not distended Musculoskeletal: no cyanosis or clubbing, extremities motor strength 5/5 Skin: no rashes, warm and dry Neurologic: moves all extremities and awake Psychiatric: Orientation: alert, oriented to person and cooperative Results & Data Results & Data ([facility]) Vital Signs (Past 12 Hours) Vital Signs Temp Pulse Pulse Resp BP Pulse Ox 10/26/20 17:01 37.3 C 62 18 127/81 94 10/26/20 15:52 65 10/26/20 11:57 37.0 C 61 18 141/83 H 96 10/26/20 09:18 48 L 10/26/20 07:57 37.1 C 62 16 117/65 91 PG Care Time/CCT Total # of Minutes Spent Total Time Spent with Patient: Total time spent is greater than 50% in coordination of care (as documented) at patient's floor/unit and/or counseling patient: Coding Level of Care Code 02232 Subseq Hosp Care Lvl 2 Diagnoses Pneumonia due to COVID-19 virus U07.1; J12.82 Acute respiratory failure with hypoxia J96.01 Hypertension I10 Hypercholesteremia E78.00 Abnormal finding on urinalysis R82.90 DVT prophylaxis Z29.9
[2020-10-27] MEDS: IRBESARTAN 75 MG TAB PO SCH (08:13)
[2020-10-27] MEDS: dexAMETHasone 4 MG TAB PO SCH (08:13)
[2020-10-27] MEDS: CHOLECALCIFEROL 1,000 UNITS 25 MCG TAB PO SCH (08:13)
--- NOTE | 2020-10-27 13:38 | Hospitalist Progress Note ---
Date of Service October 27, 2020 Assessment & Plan (1) Pneumonia due to COVID-19 virus: With bilateral multifocal pneumonia in the setting of Covid-19 illness. Exposed on 10/03/2020; first symptoms on 10/10/2020. Outside the window for remdesivir or convalescent plasma. - Continue dexamethasone 6 mg PO daily x 10-day course (End date: 11/02/2020) - Discussed prone positioning as tolerated - Continue supplemental O2 as below to keep pulse ox greater than 90% - Blood cultures pending - Cough suppressant PRN -> Doing some better today. Blood cultures still negative. Hoping to go home tomorrow. Will get 2-step in the AM. (2) Acute respiratory failure with hypoxia: Secondary to Covid-19 pneumonia. - As above (3) Hypertension: Blood pressures elevated in the ED. Today, BP is 140/75. - Continue home irbesartan (4) Hypercholesteremia: - Hold home Co-Q10 and red yeast rice (5) Abnormal finding on urinalysis: UA abnormal but seems contaminated with greater than 30 epithelials and only 5-10 WBCs. She has absolutely no urinary symptoms at all. Asymptomatic bacteruria. - Will not continue abx (6) DVT prophylaxis: SCDs only due to patient wishes, ambulation. Admission and Anticipated Discharge Date Admission Date: October 24, 2020 Subjective Doing better today. Improved overall. Less shortness of breath. Reports no fevers/chills, chest pain, abdominal pain, nausea, or vomiting. Physical Exam Constitutional: WD/WN, vitals as above Eyes: EOM intact bilaterally; no conjunctival abnormality ENMT: external ear and nose normal, oropharynx normal Neck: trachea midline, no thyromegaly normal visual inspection Respiratory: normal respiratory effort, lungs clear to auscultation no respiratory distress Cardiovascular: RRR, no murmur, no edema Gastrointestinal (Abdomen): Inspection/Auscultation: abdomen normal to inspection; abdomen not distended Musculoskeletal: no cyanosis or clubbing, extremities motor strength 5/5 Skin: no rashes, warm and dry Neurologic: moves all extremities and awake Psychiatric: Orientation: alert, oriented to person and cooperative Results & Data Results & Data ([facility]) Vital Signs (Past 12 Hours) Vital Signs Temp Pulse Pulse Resp BP Pulse Ox 10/27/20 09:00 51 L 10/27/20 08:00 37.1 C 64 20 142/74 H 90 PG Care Time/CCT Total # of Minutes Spent Total Time Spent with Patient: Total time spent is greater than 50% in coordination of care (as documented) at patient's floor/unit and/or counseling patient: Coding Level of Care Code 20831 Subseq Hosp Care Lvl 2 Diagnoses Pneumonia due to COVID-19 virus U07.1; J12.82 Acute respiratory failure with hypoxia J96.01 Hypertension I10 Hypercholesteremia E78.00 Abnormal finding on urinalysis R82.90 DVT prophylaxis Z29.9
[2020-10-28] MEDS: IRBESARTAN 75 MG TAB PO SCH (08:26)
[2020-10-28] MEDS: CHOLECALCIFEROL 1,000 UNITS 25 MCG TAB PO SCH (08:26)
[2020-10-28] MEDS: dexAMETHasone 4 MG TAB PO SCH (08:26)
--- NOTE | 2020-10-28 21:06 | Discharge Summary ---
Date of Service October 28, 2020 Admission HPI Per Admitting Provider This patient is a 70-year-old female with a history of HTN, hyperlipidemia, who presents to the ER with concern for possible Covid exposure from 3 weeks ago. She began noticing some fatigue and then a mildly productive cough, intermittent diarrhea, and body aches. She denies fevers or chills, denies chest pain or shortness of breath. She was exposed to a friend 3 weeks ago who was feeling ill and later tested positive for Covid. Since that time, she has been quarantining at home but came in today as she is feeling overall worse. She also has low appetite, has not been eating or drinking much at all, and feels dehydrated, with a low-grade headache which is now improved with Tylenol. In the ER, she tested positive for Covid, had lymphopenia with a normal WBC count, but otherwise normal chemistry, negative troponin, negative procalcitonin. She had a pulse ox of 90% on room air at rest but dropped to 80% on room air with minimal ambulation to the bathroom and back as per nursing-she was placed on 2 L nasal cannula. She was hypertensive and tachypneic only after ambulation to the bathroom. A chest x-ray showed multifocal pneumonia. UA showed 1+ protein, trace blood but no RBCs, positive nitrate with 5-10 WBCs, greater than 30 epis, and 4+ bacteria. Urine culture was sent as well as blood cultures. She was given a dose of IV ceftriaxone for suspected UTI, dexamethasone 6 mg IV x1, and 1 L of normal saline as well as IV Tylenol for low-grade temperature. She will be admitted for Covid-19 pneumonia and acute respiratory failure with hypoxia. Principal Diagnosis Covid-19 pneumonia Discharge Exam Constitutional WD/WN, vitals as above Eyes EOM intact bilaterally; no conjunctival abnormality ENMT external ear and nose normal, oropharynx normal Neck trachea midline, no thyromegaly normal visual inspection Respiratory normal respiratory effort, lungs clear to auscultation no respiratory distress Cardiovascular RRR, no murmur, no edema Gastrointestinal (Abdomen) Inspection/Auscultation: abdomen normal to inspection; abdomen not distended Musculoskeletal no cyanosis or clubbing, extremities motor strength 5/5 Skin no rashes, warm and dry Neurologic moves all extremities and awake Psychiatric Orientation: alert, oriented to person and cooperative Discharge Data Allergies Allergy/AdvReac Type Severity Reaction Status Date / Time ciprofloxacin Allergy Unknown Verified 10/24/20 15:17 codeine Allergy Unknown . Verified 10/24/20 15:17 morphine Allergy Unknown . Verified 10/24/20 15:17 Consultations 10/24/20 13:52 ED Decision to Admit Stat Hospital Course (1) Pneumonia due to COVID-19 virus: With bilateral multifocal pneumonia in the setting of Covid-19 illness. Exposed on 10/03/2020; first symptoms on 10/10/2020. Outside the window for remdesivir or convalescent plasma. - Continue dexamethasone 6 mg PO daily x 10-day course (End date: 11/02/2020) - Script sent for remaining week - Discharged on room air at rest and 2L NC with exertion. - Cough suppressant PRN (2) Acute respiratory failure with hypoxia: Secondary to Covid-19 pneumonia. - As above (3) Hypertension: Blood pressures elevated in the ED. Today, BP is 140/75. - Continue home irbesartan (4) Hypercholesteremia: - Hold home Co-Q10 and red yeast rice (5) Abnormal finding on urinalysis: UA abnormal but seems contaminated with greater than 30 epithelials and only 5-10 WBCs. She has absolutely no urinary symptoms at all. Asymptomatic bacteruria. - Will not continue abx (6) DVT prophylaxis: SCDs only due to patient wishes, ambulation. Total Time Total Time Spent Total Time Spent (In Minutes): 35 Discharge Plan Discharge Items Patient Disposition: Home - Self-Care Reason For Visit: COVID PNA,HYPOXIA Discharge Diagnosis: Covid-19 pneumonia Activity: Resume your previous activity Non-emergency contact: Primary Care Provider Call non-emergency contact if: your symptoms worsen Follow-up/Referrals: Jake Villarreal III, MD [Primary Care Provider] - Diet: Regular Addtl Attending Provider Instructions: Ms. Martniez, You were admitted to the hospital for Covid-19 pneumonia. We treated you with steroids (dexamethasone) which are helping reduce the inflammation in your lungs and helping you heal. Luckily, you are healing well. Please finish the course of steroids that we are prescribing. You will take the steroid once per day in the morning until it is gone. Your next dose is tomorrow morning. You have 7 more days left of this medication. For your oxygen, please use the 2L with exertion. You did well enough that you don't need it at rest, but for at least the next few weeks, it won't cause any harm if you wear it while at rest. Please follow up with your PCP in a week or two to see how your oxygen level and energy levels are doing. Pending Studies at Discharge: No Stand-Alone Forms: My [facility] [employer], Smoking Cessation Medications and DC Order Prescriptions: New dexamethasone 6 mg tablet 6 mg PO DAILY Qty: 7 RF: 0 benzonatate [Tessalon Perles] 100 mg capsule 100 mg PO TID PRN (Reason: cough) Qty: 20 RF: 0 Continued multivitamin tablet 1 tab PO DAILY RF: 0 calcium carbonate 600 mg calcium (1,500 mg) tablet 600 - 1,200 mg PO DAILY RF: 0 cholecalciferol (vitamin D3) 5,000 unit tablet 5,000 units PO DAILY RF: 0 cinnamon bark 500 mg capsule 0 mg PO DAILY RF: 0 coenzyme Q10 100 mg capsule 100 mg PO DAILY RF: 0 red yeast rice 600 mg capsule 600 mg PO DAILY RF: 0 irbesartan 75 mg tablet 75 mg PO DAILY Qty: 90 RF: 3 Glucosamine Chondroitin 550-30-1 mg Capsule 2 cap PO DAILY RF: 0 Discharge Orders: Discharge Order (Routine); Ordered 10/28/20 Ordered By: Derrick Dominguez Admission Data Admit Date/Time: 10/24/20 15:12 Attending Provider: Derrick Dominguez Admit Provider: Yumiko Nieto Primary Care Provider: Jake Villarreal III Other Providers: Derrick Dominguez Other Interventions: Discharge Summary Assessment (RN) Last Done: 10/28/20 15:17 Coding Level of Care Code D/C Day Management >30 mins Diagnoses Pneumonia due to COVID-19 virus U07.1; J12.82 Acute respiratory failure with hypoxia J96.01 Hypertension I10 Hypercholesteremia E78.00 Abnormal finding on urinalysis R82.90 DVT prophylaxis Z29.9
== END 2020-10-28 15:17 | disposition home or self-care (01) | DRG 177 ==
LOC: ED 10:06 → SUATTDRO 15:12 → 2W 15:12